=== PATIENT | female | born 1945 | race Caucasian/White ===

== ENCOUNTER → 2022-09-07 09:26 | Outpatient (BNVA) | payer OTHER, SELFPAY | PROVIDERS: PCP Family Medicine; Visit Provider Internal Medicine | DX: M25.552 Pain in left hip (principal); G56.11 Other lesions of median nerve, right upper limb; M53.3 Sacrococcygeal disorders, not elsewhere classified | CPT/HCPCS: 20610 ==

== ENCOUNTER 2022-12-28 10:14 | Outpatient (AMB) | payer OTHER, SELFPAY ==
--- NOTE | 2022-12-28 10:19 | A.OFFVIS_ITS ---
Intake Vital Signs 12/28/22 10:21 Height 5 ft 5 in Weight 144 lb BMI 24.0 BP 129/60 Blood Pressure Location Lt brachial Position Sitting Respiration 14 Pulse 71 Pulse Source Pulse Oximeter Pulse Oximetry (%) 96 Oxygen Delivery Method Room Air Intake Visit Reasons: Increasing Back Pain/ Possible Injection?? Allergies Penicillins Allergy (Unknown, Verified 12/28/22 10:22) Unknown Medication List - Last Reconciled 12/28/22 by Chinyere Brown LPN albuterol sulfate 90 mcg/actuation (ProAir RespiClick) 2 inhalations inhalation Q6H PRN aspirin 325 mg PO DAILY cholecalciferol (vitamin D3) 25 mcg PO DAILY diphenhydramine HCl (Benadryl) 25 mg PO BEDTIME PRN gabapentin 300 mg PO BEDTIME levothyroxine 88 mcg PO DAILY microfibril. collagen hemostat topical HPI Increasing Back Pain/ Possible Injection?? HPI Details 77-year-old female presenting today for an increasing left greater trochanteric pain. The patient reports greater than 70 % relief following the procedure for about 2 months. Her left hip symptoms have gradually worsened over the last 2 months. The patient had a blood clot in her right leg on 09/16/22, 1 week after she had the Kenalog injection on the left greater trochanteric bursa with us. She was on the Eliquis for three months and then switched to aspirin. Her pain is worse with standing from sitting position or climbing stairs. She is currently taking a combination of Tylenol and Advil. She recently started performing exercises at home including walking on treadmill and cycling. She has not done any formal physical therapy for this problem in recent times because of lack of relief from prior sessions of physical therapy for various other ailments. Her DVT was thought to be secondary to her left hip fracture earlier in the year with a late presentation of the clot. Past procedure: 09/07/2022: Greater Trochanteric Bursa Injection, Left: 70% relief for about two months. [facility] Medical History (Updated 09/07/22 @ 12:26 by Leonardo Evangelista MD) Adjustment disorder with mixed anxiety and depressed mood Arthritis of left hip Asthma Dupuytrens contracture Gallstone High risk for hip fracture José Miguel's syndrome Hypothyroidism Osteopenia Patellofemoral arthralgia of both knees Right carpal tunnel syndrome Vitamin D deficiency Review of Systems Const All systems reviewed & are unremarkable except as noted in HPI and below Physical Exam Vital Signs: Last Vital Signs Pulse 71 12/28/22 10:21 Resp 14 12/28/22 10:21 BP 129/60 12/28/22 10:21 Pulse Ox 96 12/28/22 10:21 Oxygen Delivery Method Room Air 12/28/22 10:21 BMI result Body Mass Index 24.0 General: Appears afebrile. Alert and oriented. Mood and affect appropriate. Follows and participates in conversation appropriately. Respiratory effort is unlabored. Able to transition from sit to stand unassisted. Ambulates with bilaterally normal heel strike and toe off. Results Reviewed Results Reviewed: No imaging is available for review. Assessment & Plan Assessment & Plan (1) Greater trochanteric pain syndrome: Code(s): M25.559 - Pain in unspecified hip Plan 1. Encouraged the patient to perform stretching exercises for 15?20 minutes per day for greater trochanteric pain syndrome. Provided the patient with specific exercises including isometric strengthening and stretching to be done at home. 2. If exercises are not helpful, we can consider at half dose Kenalog injection to the left greater trochanter. While it is unclear if the last injection provoked her DVT at all, I would like to tread cautiously to avoid risk of PE given her advanced age and coexisting lung disease. Patient will call us as needed to schedule a repeat injection. Patient is in agreement with the plan. Scribed for Dr. Evangelista by Jeferson Flores, medical billing coordinator, on 12/28/2022. I, Dr. Evangelista, have personally reviewed and agree with the information entered by the scribe. Coding Level of Care Code Est Pt Level 3 (75034) Diagnoses Greater trochanteric pain syndrome M25.559
[2022-12-28 10:21] VITALS: BP 129/60; PULSE 71; RESP 14; O2SAT 96; BMI 24.0
== END 2022-12-28 10:52 | disposition home or self-care (01) ==
PROVIDERS: PCP Family Medicine; Visit Provider Internal Medicine
DX: M25.559 Pain in unspecified hip (principal)
CPT/HCPCS: 99213

== ENCOUNTER → 2022-12-28 10:14 | Outpatient (BNVA) | payer OTHER, SELFPAY | PROVIDERS: PCP Family Medicine; Visit Provider Internal Medicine ==